=== PATIENT | female | born 1970 | race African-American/Black ===

== ENCOUNTER 2020-07-09 08:01 | Observation (INO) | payer OTHER ==
--- NOTE | 2020-07-09 08:20 | Event Note ---
ED Screening Note Date of service: 07/09/20 Time: 08:19 ED Screening Note: Patient complains of sudden onset of generalized severe headache starting last night Patient states when her blood pressure is elevated she gets headaches, however this headache is much worse than normal She denies any weakness or numbness This initial assessment/diagnostic orders/clinical plan/treatment(s) is/are subject to change based on patients health status, clinical progression and re- assessment by fellow clinical providers in the ED. Further treatment and workup at subsequent clinical providers discretion. Patient/guardian urged not to elope from the ED as their condition may be serious if not clinically assessed and managed. Initial orders include: CT labs
[2020-07-09 08:46] LABS: Basophils % (Auto) 0.3 % (0.0-1.8); Eosinophils % (Auto) 0.3 % (0.0-4.3); Hematocrit 41.4 % (30.3-42.9); Hemoglobin 14.3 gm/dl (10.1-14.3); Lymphocytes % (Auto) 13.3 % (13.4-35.0); Mean Corpuscular HGB Conc 35 % (30-34); Mean Corpuscular Volume 93 fl (79-97); Monocytes # (Auto) 0.2 K/mm3 (0.0-0.8); Monocytes % (Auto) 3.3 % (0.0-7.3); Platelet Count 273 K/mm3 (140-440); Red Blood Count 4.47 M/mm3 (3.65-5.03); Red Cell Distribution Width 12.2 % (13.2-15.2)
[2020-07-09 09:00] LABS: Alanine Aminotransferase 16 units/L (7-56); Albumin 4.6 g/dL (3.9-5); Blood Urea Nitrogen 7 mg/dL (7-17); Calcium 8.9 mg/dL (8.4-10.2); Hemolysis Index 13
[2020-07-09 09:05] LABS: BUN/Creatinine Ratio 18
--- NOTE | 2020-07-09 09:47 | Cat Scan Report ---
CT HEAD WITHOUT CONTRAST INDICATION / CLINICAL INFORMATION: sudden severe headache. TECHNIQUE: Axial imaging performed from the skull apex through the skull base without the use of cont rast. Sagittal and coronal reformatted images. All CT scans at this location are performed using CT dose reduction for ALARA by means of automated exposure control. COMPARISON: None available. FINDINGS: CEREBRAL PARENCHYMA: There is nonspecific hypoattenuation in the periventricular and subcortical whit e matter bilaterally most consistent with chronic microangiopathy. No acute parenchymal abnormality. No chronic infarct. HEMORRHAGE: None. EXTRA-AXIAL SPACES: Normal in size and morphology for the patient's age. VENTRICULAR SYSTEM: Normal in size and morphology for the patient's age. MIDLINE SHIFT OR HERNIATION: None. CEREBELLUM / BRAINSTEM: No significant abnormality. CALVARIUM: No significant abnormality. ORBITS: Normal as visualized. PARANASAL SINUSES / MASTOID AIR CELLS: Normal as visualized. SOFT TISSUES of HEAD: No significant abnormality. ADDITIONAL FINDINGS: None. IMPRESSION: No acute intracranial abnormality. Nonspecific chronic white matter changes most consistent with synchronizer luz microangiopathy. Signer Name: Rigoberto Marques Jr, MD Signed: 07/09/2020 9:43 AM Workstation Name: [id number]
[2020-07-09] MEDS ORDERED: MORPHINE 4 MG/1 ML INJ IV ONE (10:54)
[2020-07-09] MEDS ORDERED: ONDANSETRON 4 MG/2 ML INJ IV ONE (10:54)
[2020-07-09] MEDS ORDERED: SODIUM CHLORIDE 0.9% 1000 ML 1,000 ML IV SCH (11:00)
--- NOTE | 2020-07-09 11:10 | Emergency Department Report ---
ED Headache HPI - General Chief Complaint: Headache Stated Complaint: HIGH BP Time Seen by Provider: 07/09/20 08:18 - History of Present Illness Initial Comments: This is a 50-year-old [place] speaking female with history of hypertension who presents with severe headache since last night. Patient has global throbbing headache which began gradually. She also has nausea vomiting. She denies visual changes. She denies paresthesias. She denies weakness. For several months she has had chronic cough. Lung exam obtained by PCP did not reveal any abnormalities. Patient also has dull left flank pain over the last several days. Patient denies tobacco use. Patient works in a [employer]. She lives with a roommate. Her [id number] at the bedside provided [place] interpretation. Patient has the following medications in her bag, including duplicate: Levocetirizine 5 mg Loratadine 10 mg Loratadine 10 mg Lisinopril 10 mg Lisinopril 40 mg Berta 180 mg Clonidine 0.1 mg for blood pressure over 150 and diastolic blood pressure over 110 Losartan/hydrochlorothiazide 100-25 mg Benadryl 25 mg Timing/Duration: other (Headache began last night) Quality: severe Head Injury Location: global Recent Head Trauma: frequent headaches Associated Symptoms: nausea/vomiting Allergies/Adverse Reactions: Allergies No Known Allergies Allergy (Unverified 07/09/20 08:17) ED Review of Systems ROS: Stated complaint: HIGH BP Other details as noted in HPI Comment: All other systems reviewed and negative Constitutional: denies: chills, fever Respiratory: cough. denies: shortness of breath Cardiovascular: denies: chest pain Gastrointestinal: nausea, vomiting. denies: abdominal pain Musculoskeletal: back pain Neurological: headache. denies: numbness, paresthesias, confusion ED Past Medical Hx - Past Medical History Previous Medical History?: Yes Hx Hypertension: Yes - Surgical History Past Surgical History?: No - Social History Smoking Status: Current Some Day Smoker Substance Use Type: None ED Physical Exam - General Limitations: No Limitations General appearance: alert, in no apparent distress, other (Appears ill, appears uncomfortable holding emesis bag) - Head Head exam: Present: atraumatic, normocephalic - Eye Eye exam: Present: normal appearance. Absent: scleral icterus, conjunctival injection - ENT ENT exam: Present: mucous membranes moist - Neck Neck exam: Present: normal inspection - Respiratory Respiratory exam: Present: normal lung sounds bilaterally. Absent: respiratory distress, wheezes, rales, rhonchi, stridor - Cardiovascular Cardiovascular Exam: Present: regular rate, normal rhythm, normal heart sounds. Absent: systolic murmur, diastolic murmur, rubs, gallop - GI/Abdominal GI/Abdominal exam: Present: soft, normal bowel sounds. Absent: distended, tenderness, guarding, rebound - Extremities Exam Extremities exam: Present: normal inspection - Neurological Exam Neurological exam: Present: alert, oriented X3 - Psychiatric Psychiatric exam: Present: normal affect, normal mood - Skin Skin exam: Present: warm, dry, intact, normal color. Absent: rash ED Course Vital Signs 07/09/20 07/09/20 07/09/20 08:11 11:20 12:21 Temperature 98.4 F Pulse Rate 115 H 101 H 103 H Respiratory 18 18 Rate Blood Pressure 191/104 Blood Pressure 185/11 149/96 [Left] O2 Sat by Pulse 95 93 Oximetry ED Medical Decision Making - Lab Data Result diagrams: 07/09/20 08:26 07/09/20 08:26 Laboratory Tests 07/09/20 07/09/20 08:26 08:26 WBC 7.6 RBC 4.47 Hgb 14.3 Hct 41.4 MCV 93 MCH 32 MCHC 35 H RDW 12.2 L Plt Count 273 Lymph % (Auto) 13.3 L [place] % (Auto) 3.3 Eos % (Auto) 0.3 Baso % (Auto) 0.3 Lymph # (Auto) 1.0 L [place] # (Auto) 0.2 Eos # (Auto) 0.0 Baso # (Auto) 0.0 Seg Neutrophils % 82.8 H Seg Neutrophils # 6.3 Sodium 121 L Potassium 3.3 L Chloride 84.4 L Carbon Dioxide 26 Anion Gap 14 BUN 7 Creatinine 0.4 L Estimated GFR > 60 BUN/Creatinine Ratio 18 Glucose 128 H Calcium 8.9 Total Bilirubin 0.50 AST 21 ALT 16 Alkaline Phosphatase 83 Total Protein 7.3 Albumin 4.6 Albumin/Globulin Ratio 1.7 - Radiology Data Radiology results: report reviewed, image reviewed CT HEAD WITHOUT CONTRAST INDICATION / CLINICAL INFORMATION: sudden severe headache. TECHNIQUE: Axial imaging performed from the skull apex through the skull base without the use of contrast. Sagittal and coronal reformatted images. All CT scans at this location are performed using CT dose reduction for ALARA by means of automated exposure control. COMPARISON: None available. FINDINGS: CEREBRAL PARENCHYMA: There is nonspecific hypoattenuation in the periventricular and subcortical white matter bilaterally most consistent with chronic microangiopathy. No acute parenchymal abnormality. No chronic infarct. HEMORRHAGE: None. EXTRA-AXIAL SPACES: Normal in size and morphology for the patient's age. VENTRICULAR SYSTEM: Normal in size and morphology for the patient's age. MIDLINE SHIFT OR HERNIATION: None. CEREBELLUM / BRAINSTEM: No significant abnormality. CALVARIUM: No significant abnormality. ORBITS: Normal as visualized. PARANASAL SINUSES / MASTOID AIR CELLS: Normal as visualized. SOFT TISSUES of HEAD: No significant abnormality. ADDITIONAL FINDINGS: None. IMPRESSION: No acute intracranial abnormality. Nonspecific chronic white matter changes most consistent with chronic microangiopathy. CT CHEST WITHOUT CONTRAST INDICATION / CLINICAL INFORMATION: Chronic cough, severe hyponatremia. TECHNIQUE: Axial CT images were obtained through the chest without contrast. Sagittal and coronal reformatted images. All CT scans at this location are performed using CT dose reduction for ALARA by means of automated exposure control. COMPARISON: None available. FINDINGS: HEART: No significant abnormality. THORACIC AORTA: No significant abnormality. MEDIASTINUM and BROOK: No significant abnormality. LUNGS: No acute air space or interstitial disease. PLEURA: No significant pleural effusion. No pneumot horax. SKELETAL SYSTEM: No significant abnormality. IMPRESSION: No significant abnormality. CT ABDOMEN AND PELVIS WITHOUT CONTRAST HISTORY: flank pain severe hyponatremia COMPARISON: None. TECHNIQUE: Axial CT images were obtained through the abdomen and pelvis without IV contrast. Sagittal and coronal reformatted images. All CT scans at this location are performed using CT dose reduction for ALARA by means of automated exposure control. FINDINGS: CT ABDOMEN: Liver: No significant abnormality. Biliary: No significant abnormality. Spleen: No significant abnormality. Unenlarged. Pancreas: No significant abnormality. Adrenals: No significant abnormality. Kidneys: A 3 mm calyceal stone is identified in the inferior right kidney. No associated hydronephrosis. The kidneys and collecting systems are unremarkable otherwise on noncontrast CT. [facility] [address], [address] [place] [address] P [phone] F [phone] [facility] - Report exported on Jul 09, 2020 11:39:05 -0600 - Page 2 of 2 Lymphatics: No lymphadenopathy. Vasculature: No significant abnormality. Bowel/Peritoneum: No significant abnormality. No free air. No free fluid. Normal appendix. CT PELVIS: : Small partially calcified fibroid is suggested near the uterine fundus. The adnexa and bladder are unremarkable. Osseous Structures: No significant abnormality. Additional Findings: None IMPRESSION: No acute process. 3 mm right renal stone. Small uterine fibroid. Otherwise, unremarkable exam - Medical Decision Making 1. Acute headache: CT head ruled out intracranial hemorrhage. No evidence of acute findings on CT head. I suspect hyponatremia as a cause of headache. As well as hypertensive urgency. Patient was treated with slow infusion of normal saline 75 mL/h. She also was treated with IV labetalol for hypertension control. 2. Hypertensive urgency: No evidence of endorgan damage. However patient did have malignant hypertension upon arrival exacerbated by headache patient's discomfort. 3. Hyponatremia likely due to thiazide diuretic use: Patient received slow infusion of saline 75 mL an hour 4. Flank pain: No indication of emergent causes. CT abdomen pelvis without acute findings, patient does have a 3 mm right renal stone and also uterine fibroid. Will defer to outpatient work-up. I used [employer] line [place] per diem interpreter to obtain history, give results and explained treatment plan. Critical care attestation.: If time is entered above; I have spent that time in minutes in the direct care of this critically ill patient, excluding procedure time. ED Disposition Clinical Impression: Acute headache, Hyponatremia, Hypertensive urgency Disposition: OP ADMIT IP TO THIS HOSP Is pt being admited?: Yes Does the pt Need Aspirin: No Condition: Stable Referrals: PRIMARY CARE, [Primary Care Provider] - 3-5 Days
--- NOTE | 2020-07-09 12:24 | Cat Scan Report ---
CT CHEST WITHOUT CONTRAST INDICATION / CLINICAL INFORMATION: Chronic cough, severe hyponatremia. TECHNIQUE: Axial CT images were obtained through the chest without contrast. Sagittal and coronal reformatted im ages. All CT scans at this location are performed using CT dose reduction for ALARA by means of autom ated exposure control. COMPARISON: None available. FINDINGS: HEART: No significant abnormality. THORACIC AORTA: No significant abnormality. MEDIASTINUM and BROOK: No significant abnormality. LUNGS: No acute air space or interstitial disease. PLEURA: No significant pleural effusion. No pneumothorax. SKELETAL SYSTEM: No significant abnormality. IMPRESSION: No significant abnormality. CT ABDOMEN AND PELVIS WITHOUT CONTRAST HISTORY: flank pain severe hyponatremia COMPARISON: None. TECHNIQUE: Axial CT images were obtained through the abdomen and pelvis without IV contrast. Sagittal and coronal reformatted images. All CT scans at this location are performed using CT dose reduction for ALARA by means of automated exposure control. FINDINGS: CT ABDOMEN: Liver: No significant abnormality. Biliary: No significant abnormality. Spleen: No significant abnormality. Unenlarged. Pancreas: No significant abnormality. Adrenals: No significant abnormality. Kidneys: A 3 mm calyceal stone is identified in the inferior right kidney. No associated hydronephros is. The kidneys and collecting systems are unremarkable otherwise on noncontrast CT. Lymphatics: No lymphadenopathy. Vasculature: No significant abnormality. Bowel/Peritoneum: No significant abnormality. No free air. No free fluid. Normal appendix. CT PELVIS: : Small partially calcified fibroid is suggested near the uterine fundus. The adnexa and bladder ar e unremarkable. Osseous Structures: No significant abnormality. Additional Findings: None IMPRESSION: No acute process. 3 mm right renal stone. Small uterine fibroid. Otherwise, unremarkable exam. Signer Name: Rigoberto Marques Jr, MD Signed: 07/09/2020 12:20 PM Workstation Name: [id number]
[2020-07-09] MEDS ORDERED: METOCLOPRAMIDE 10 MG/2 ML INJ IV ONE (13:56)
[2020-07-09] MEDS ORDERED: MORPHINE 2 MG/1 ML INJ IV PRN (14:03)
[2020-07-09] MEDS ORDERED: ONDANSETRON 4 MG/2 ML INJ IV PRN (14:03)
[2020-07-09] MEDS ORDERED: MORPHINE 4 MG/1 ML INJ IV PRN (14:03)
[2020-07-09] MEDS ORDERED: ALBUTEROL 2.5 MG/3 ML NEBU IH PRN (14:03)
[2020-07-09] MEDS ORDERED: NALOXONE 0.4 MG/1 ML INJ IV PRN (14:03)
[2020-07-09] MEDS ORDERED: MAGNESIUM HYDROXIDE (MOM) ORAL LIQD UDC PO PRN (14:03)
[2020-07-09] MEDS ORDERED: ACETAMINOPHEN 325 MG TAB PO PRN (14:03)
[2020-07-09] MEDS ORDERED: hydrALAZINE 20 MG/1 ML INJ IV PRN (14:08)
--- NOTE | 2020-07-09 14:20 | History and Physical Report ---
History of Present Illness Date of examination: 07/09/20 Date of admission: 07/09/20 12:59 Chief complaint: Headache, nausea and vomiting, abdominal pain History of present illness: This is a 50-year-old enemies speaking female with hypertension who presents to the emergency department on 07/09 with complaints of a severe headache rated 10/10 with gradual onset since last night, nausea and vomiting since last night associated with mid abdominal pain which started last night rated at 10/10. Patient is a poor historian and does not speak [place] therefore most of history is obtained from her cousin and ED documentation. Per ED documentation patient is a current smoker however she denied this at the time my interview. Patient denies any cough, fever, chills, loss of sense of taste or smell, shortness of breath, excessive fatigue, or diarrhea, chest pain, night sweats, hemoptysis or recent weight loss. Patient denies any known exposure to COVID-19 or sick persons. Work-up in the emergency department included a CT head, CT chest and CT abdomen/pelvis which revealed a 3 mm right nephrolithiasis without obstruction and a small uterine fibroid. Upon arrival to the emergency department patient's BP was 191/104 and she was given 10 mg of labetalol. Her lab work revealed natremia at 121, hypokalemia at 3.3 and hypochloremia at 84.4. Patient will be admitted to the hospital service for intractable nausea and vomiting with electrolyte imbalances and as a COVID-19 PUI. Home medications reconciled, prior visits to review and advance care planning conducted in the emergency department. Past History Past Medical History: hypertension Past Surgical History: No surgical history Social history: single, Lives alone, full code. denies: smoking, alcohol abuse, prescription drug abuse, IV drug use Family history: no significant family history Medications and Allergies Allergies Allergy/AdvReac Type Severity Reaction Status Date / Time No Known Allergies Allergy Unverified 07/09/20 08:17 Active Meds: Active Medications Acetaminophen (Acetaminophen 325 Mg Tab) 650 mg PO Q4H PRN PRN Reason: Pain MILD(1-3)/Fever >100.5/[place] Albuterol (Albuterol 2.5 Mg/3 Ml Nebu) 2.5 mg IH Q4HRT PRN PRN Reason: Shortness Of Breath Enoxaparin Sodium (Enoxaparin 30 Mg/0.3 Ml Inj) 30 mg SUB-Q QDAY [place] Famotidine (Famotidine 20 Mg/2 Ml Inj) 10 mg IV BID [facility] Hydralazine HCl (Hydralazine 20 Mg/1 Ml Inj) 10 mg IV Q4HR PRN PRN Reason: Hypertension Sodium Chloride (Nacl 0.9% 1000 Ml) 1,000 mls @ 75 mls/hr IV DIRECT [place] Last Admin: 07/09/20 11:51 Dose: 75 mls/hr Documented by: Potassium Chloride (Kcl 10meq/100ml) 10 meq in 100 mls @ 100 mls/hr IV Q1H [place] Stop: 07/09/20 18:59 Labetalol HCl (Labetalol 20 Mg/4 Ml Inj) 10 mg IV Q6HR PRN PRN Reason: Hypertension Magnesium Hydroxide (Magnesium Hydroxide (Mom) Oral Liqd Udc) 30 ml PO Q4H PRN PRN Reason: Constipation Morphine Sulfate (Morphine 2 Mg/1 Ml Inj) 2 mg IV Q4H PRN PRN Reason: Pain, Moderate (4-6) Morphine Sulfate (Morphine 4 Mg/1 Ml Inj) 4 mg IV Q4H PRN PRN Reason: Pain , Severe (7-10) Naloxone HCl (Naloxone 0.4 Mg/1 Ml Inj) 0.1 mg IV Q2MIN PRN PRN Reason: Res Rate </= 8 or 02 SAT < 92% Ondansetron HCl (Ondansetron 4 Mg/2 Ml Inj) 4 mg IV Q6HR PRN PRN Reason: Nausea And Vomiting Sodium Chloride (Sodium Chloride 0.9% 10 Ml Flush Syringe) 10 ml IV BID [facility] Sodium Chloride (Sodium Chloride 0.9% 10 Ml Flush Syringe) 10 ml IV PRN PRN PRN Reason: LINE FLUSH Review of Systems Constitutional: no weight loss, no weight gain, no fever, no chills, no sweats, no night sweats, no fatigue, no lethargy Ears, nose, mouth and throat: sore throat, no ear pain, no ear discharge, no tinnitis, no decreased hearing, no nose pain, no nasal congestion, no nasal discharge, no sinus pressure, no sinus pain, no mouth pain Cardiovascular: high blood pressure, no chest pain, no orthopnea, no palpitations, no rapid/irregular heart beat, no edema, no syncope, no lightheadedness, no shortness of breath, no dyspnea on exertion, no leg edema Respiratory: cough, no cough with sputum, no excessive sputum, no hemoptysis, no shortness of breath, no dyspnea on exertion Gastrointestinal: abdominal pain, nausea, vomiting, no diarrhea, no constipation, no change in bowel habits, no hematemesis, no coffee ground emesis, no BRBPR, no melena, no hematochezia, no heartburn, no indigestion, no early satiety Genitourinary Female: no pelvic pain, no flank pain, no dysuria, no urinary frequency, no urgency, no stress incontinence, no hematuria, no nocturia Rectal: no pain, no incontinence, no bleeding, no itching, no hemorrhoids Musculoskeletal: no neck stiffness, no neck pain, no shooting arm pain, no arm numbness/tingling, no low back pain, no shooting leg pain, no leg numbness/tingl ing Integumentary: no rash, no pruritis, no redness, no sores, no wounds, no jaundice, no blisters, no darkening of skin Neurological: no head injury, no transient paralysis, no paralysis, no weakness, no parathesias, no numbness, no tingling, no seizures, no syncope, no headaches, no change in speech, no change in mentation, no changes in smell/taste, no double vision, no loss of vision Psychiatric: no anxiety, no memory loss, no insomnia, no hypersomnia, no depression, no hopelessness Endocrine: no cold intolerance, no heat intolerance, no polyphagia, no excessive thirst, no polydipsia, no polyuria, no nocturia, no excessive sweating, no weight change, no palpatations, no low blood sugars Hematologic/Lymphatic: no easy bruising, no easy bleeding Allergic/Immunologic: allergic rhinitis, seasonal allergies, no urticaria Exam - Constitutional Vitals: Temp Pulse Resp BP Pulse Ox 98.4 F 103 H 18 149/96 93 07/09/20 08:11 07/09/20 12:21 07/09/20 11:20 07/09/20 12:21 07/09/20 11:20 General appearance: Present: mild distress - EENT Eyes: Present: PERRL, EOM intact ENT: hearing intact, clear oral mucosa, dentition normal - Neck Neck: Present: normal ROM - Respiratory Respiratory effort: normal Respiratory: bilateral: CTA - Cardiovascular Rhythm: regular Heart Sounds: Present: S1 & S2. Absent: systolic murmur, diastolic murmur - Extremities Extremities: no ischemia, pulses intact, pulses symmetrical, No edema, normal temperature, normal color, Full ROM - Abdominal General gastrointestinal: Present: soft, non-tender, non-distended, normal bowel sounds - Integumentary Integumentary: Present: clear, warm, dry - Musculoskeletal Musculoskeletal: strength equal bilaterally - Psychiatric Psychiatric: appropriate mood/affect, cooperative - Neurologic Neurologic: CNII-XII intact, no focal deficits, moves all extremities - Allied Health Allied health notes reviewed: nursing Results - Labs CBC & Chem 7: 07/09/20 08:26 07/09/20 08:26 Labs: Laboratory Last Values WBC 7.6 K/mm3 (4.5-11.0) 07/09/20 08:26 RBC 4.47 M/mm3 (3.65-5.03) 07/09/20 08:26 Hgb 14.3 gm/dl (10.1-14.3) 07/09/20 08:26 Hct 41.4 % (30.3-42.9) 07/09/20 08:26 MCV 93 fl (79-97) 07/09/20 08:26 MCH 32 pg (28-32) 07/09/20 08:26 MCHC 35 % (30-34) H 07/09/20 08:26 RDW 12.2 % (13.2-15.2) L 07/09/20 08:26 Plt Count 273 K/mm3 (140-440) 07/09/20 08:26 Lymph % (Auto) 13.3 % (13.4-35.0) L 07/09/20 08:26 [place] % (Auto) 3.3 % (0.0-7.3) 07/09/20 08:26 Eos % (Auto) 0.3 % (0.0-4.3) 07/09/20 08:26 Baso % (Auto) 0.3 % (0.0-1.8) 07/09/20 08:26 Lymph # (Auto) 1.0 K/mm3 (1.2-5.4) L 07/09/20 08:26 [place] # (Auto) 0.2 K/mm3 (0.0-0.8) 07/09/20 08:26 Eos # (Auto) 0.0 K/mm3 (0.0-0.4) 07/09/20 08:26 Baso # (Auto) 0.0 K/mm3 (0.0-0.1) 07/09/20 08:26 Seg Neutrophils % 82.8 % (40.0-70.0) H 07/09/20 08:26 Seg Neutrophils # 6.3 K/mm3 (1.8-7.7) 07/09/20 08:26 Sodium 121 mmol/L (137-145) L 07/09/20 08:26 Potassium 3.3 mmol/L (3.6-5.0) L 07/09/20 08:26 Chloride 84.4 mmol/L (98-107) L 07/09/20 08:26 Carbon Dioxide 26 mmol/L (22-30) 07/09/20 08:26 Anion Gap 14 mmol/L 07/09/20 08:26 BUN 7 mg/dL (7-17) 07/09/20 08:26 Creatinine 0.4 mg/dL (0.6-1.2) L 07/09/20 08:26 Estimated GFR > 60 ml/min 07/09/20 08:26 BUN/Creatinine Ratio 18 % 07/09/20 08:26 Glucose 128 mg/dL (65-100) H 07/09/20 08:26 Calcium 8.9 mg/dL (8.4-10.2) 07/09/20 08:26 Total Bilirubin 0.50 mg/dL (0.1-1.2) 07/09/20 08:26 AST 21 units/L (5-40) 07/09/20 08:26 ALT 16 units/L (7-56) 07/09/20 08:26 Alkaline Phosphatase 83 units/L (35-129) 07/09/20 08:26 Total Protein 7.3 g/dL (6.3-8.2) 07/09/20 08:26 Albumin 4.6 g/dL (3.9-5) 07/09/20 08:26 Albumin/Globulin Ratio 1.7 % 07/09/20 08:26 - Imaging and Cardiology CT scan - abdomen: report reviewed CT scan - chest: report reviewed - Diagnostic Impressions Diagnostic Impressions: 07/09 CT head shows no acute intracranial abnormality, nonspecific chronic white matter changes most consistent with chronic microangiopathy 07/09 CT chest without contrast shows 3 mm calculi stone in the right inferior in the inferior right kidney not associated with hydronephrosis, small partially calcified fibroid near the uterus fundus 07/09 CT abdomen/pelvis shows 3 mm calculus stone identified in the inferior right kidney with no associated hydronephrosis and small partially calcified fibroid near the uterine fundus Burch/IV: IV Catheter Type [Right INT / Saline Lock Antecubital] Assessment and Plan Assessment and plan: COVID-19 PUI -07/09 COVID-19 19 PCR pending -Isolation/droplet precautions -Infectious disease consult if COVID-19 positive -We will start steroid therapies if COVID-19 is positive -Pulmonary hygiene -Supplemental oxygen as needed -SPO2 monitoring -Trend Covid informatory markers -Prone to sleep as needed -Anticoagulation per protocol Hypertensive emergency -Presented with a systolic blood pressure of 191/104 -S/p labetalol in the emergency department -Restart home lisinopril and losartan, hold home hydrochlorothiazide -IV hydralazine and labetalol as needed -Blood pressure monitoring per protocol Hyponatremia -Presented with a sodium of 121 -Initiated on normal saline at 75 mL/h -Trend BMP -07/09 urine lites pending -P.o. sodium -Monitor neuro status -Avoid rapid correction Hypokalemia -Presented with a potassium of 3.1 -Repleted -Trend BMP -Intervene as needed Hypochloremia -Presented with intractable nausea and vomiting -07/09 chloride 84.4 -Trend BMP Intractable nausea and vomiting -S/p IV Reglan and Zofran x1 in the ED -As needed Zofran -Scheduled Reglan -Supportive care DVT prophylaxis -On GI and DVT prophylaxis -SCDs to bilateral tremors while in bed Full code VTE prophylaxis?: Chemical, Mechanical Plan of care discussed with patient/family: Yes
[2020-07-09 15:56] LABS: C-Reactive Protein 0.1 mg/dL (0.00-1.30)
[2020-07-09] MEDS: POTASSIUM CHLORIDE 10 MEQ 10 MEQ/100 ML BAG IV SCH ×4 (15:56→21:00)
[2020-07-09] MEDS: METOCLOPRAMIDE 10 MG/2 ML INJ IV SCH ×2 (19:14→23:20)
[2020-07-09 20:29] LABS: Bacteria,Urine 1+ /HPF (Negative); Bilirubin,Urine NEG (Negative); Blood,Urine SM (Negative); Color,Urine Straw (Yellow); Mucus,Urine FEW /HPF; Protein,Urine <15 mg/dL mg/dL (Negative); Urobilinogen,Urine < 2.0 mg/dL (<2.0)
[2020-07-09 20:49] LABS: Creatinine,Urine 22.5 mg/dL (0.1-20.0)
[2020-07-09] MEDS ORDERED: SODIUM CHLORIDE 1 GM TAB PO SCH (22:00)
[2020-07-09] MEDS: FAMOTIDINE 20 MG/2 ML INJ IV SCH (23:20)
[2020-07-10 06:31] LABS: Basophils % (Auto) 0.2 % (0.0-1.8); Eosinophils % (Auto) 0.1 % (0.0-4.3); Hemoglobin 13.8 gm/dl (10.1-14.3); Lymphocytes # (Auto) 1.5 K/mm3 (1.2-5.4); Mean Corpuscular HGB Conc 34 % (30-34); Mean Corpuscular Volume 94 fl (79-97); Monocytes # (Auto) 0.8 K/mm3 (0.0-0.8); Monocytes % (Auto) 9.9 % (0.0-7.3); Platelet Count 273 K/mm3 (140-440); Red Blood Count 4.36 M/mm3 (3.65-5.03); Red Cell Distribution Width 12.3 % (13.2-15.2)
[2020-07-10 07:00] LABS: Alanine Aminotransferase 12 units/L (7-56); Albumin 4.2 g/dL (3.9-5); BUN/Creatinine Ratio 14; Blood Urea Nitrogen 7 mg/dL (7-17); Calcium 8.7 mg/dL (8.4-10.2); Hemolysis Index 8
[2020-07-10] MEDS: METOCLOPRAMIDE 10 MG/2 ML INJ IV SCH ×2 (07:31→13:31)
[2020-07-10] MEDS ORDERED: ENOXAPARIN 30 MG/0.3 ML INJ SUB-Q SCH (10:00)
[2020-07-10] MEDS ORDERED: ENOXAPARIN 40 MG/0.4 ML INJ SUB-Q SCH (10:00)
[2020-07-10] MEDS ORDERED: hydroCHLOROthiazide 25 MG TAB PO SCH (10:00)
[2020-07-10] MEDS ORDERED: LISINOPRIL 20 MG TAB PO SCH (10:00)
[2020-07-10] MEDS ORDERED: LOSARTAN 50 MG TAB PO SCH ×3 (10:00)
[2020-07-10] MEDS ORDERED: METOPROLOL TARTRATE 25 MG TAB PO SCH (10:00)
[2020-07-10] MEDS: FAMOTIDINE 20 MG/2 ML INJ IV SCH (11:31)
--- NOTE | 2020-07-10 12:39 | Discharge Summary ---
Providers - Providers Date of Admission: 07/09/20 12:59 Date of discharge: 07/10/20 Attending physician: DEVEN OLSON Primary care physician: [employer] Hospitalization Hospital course: This is a 50-year-old Guyanese speaking female with hypertension and seasonal allergies who presents to the emergency department on 07/09 with complaints of severe headache rated 10/10 with gradual onset since last night, nausea and vomiting since 07/08 overnight associated with mid abdominal pain which started last night rated at 10/10. Patient is a poor historian and does not speak Chinese therefore most of history is obtained from her cousin and ED documentation. Per ED documentation patient is a current smoker however she denied this at the time my interview. Work-up in the emergency department included a CT head, CT chest and CT abdomen/pelvis which revealed a 3 mm right nephrolithiasis without obstruction and a small uterine fibroid. Upon arrival to the emergency department patient's BP was 191/104 and she was given 10 mg of labetalol. Her lab work revealed natremia at 121, hypokalemia at 3.3 and hypochloremia at 84.4. Patient will be admitted to the hospital service for int ractable nausea and vomiting with electrolyte imbalances and as a COVID-19 PUI. This morning patient complains of cough and states her headache and nausea and vomiting has resolved. Patient remains hypertensive and her blood pressure medications have been adjusted. Her electrode imbalances have corrected. Patient will need to follow-up with her primary care physician within 1 to 2 weeks of discharge. COVID-19 PCR resulted as---- Disposition: - TO HOME OR SELFCARE Time spent for discharge: 35 Core Measure Documentation - Palliative Care Palliative Care/ Comfort Measures: Not Applicable - Core Measures Any of the following diagnoses?: none Exam - Constitutional Vitals: Temp Pulse Resp BP Pulse Ox 98.6 F 108 H 17 152/98 94 07/10/20 00:38 07/10/20 06:42 07/10/20 06:42 07/10/20 06:42 07/10/20 11:54 General appearance: Present: no acute distress - EENT Eyes: Present: PERRL, EOM intact ENT: hearing intact, poor dentition - Neck Neck: Present: normal ROM - Respiratory Respiratory effort: normal Respiratory: bilateral: diminished - Cardiovascular Rhythm: regular Heart Sounds: Present: S1 & S2. Absent: systolic murmur, diastolic murmur - Extremities Extremities: no ischemia, pulses intact, pulses symmetrical, No edema, normal temperature, normal color, Full ROM Peripheral Pulses: within normal limits - Abdominal General gastrointestinal: Present: soft, non-tender, non-distended, normal bowel sounds - Integumentary Integumentary: Present: clear, warm, dry - Musculoskeletal Musculoskeletal: strength equal bilaterally - Psychiatric Psychiatric: appropriate mood/affect, cooperative - Neurologic Neurologic: CNII-XII intact, no focal deficits, moves all extremities - Allied Health Allied health notes reviewed: nursing Plan Activity: advance as tolerated Diet: low salt Special Instructions: record daily BP diary, smoking cessation Additional Instructions: Present to nearest emergency department or contact your primary care physician if you experience worsening symptoms. Patient will need to follow-up with her primary care physician within 1 to 2 weeks of discharge. Follow up with: PRIMARY CARE, [Primary Care Provider] - 3-5 Days Prescriptions: amLODIPine 10 mg PO QDAY #30 tablet Losartan [Cozaar] 50 mg PO QDAY #30 tablet Metoprolol [Lopressor TAB] 25 mg PO BID #60 tablet
[2020-07-10] MEDS ORDERED: amLODIPine 10 MG TAB PO SCH (13:00)
[2020-07-10] MEDS ORDERED: BENZONATATE 100 MG CAP PO SCH (14:00)
[2020-07-10 17:59] VITALS: BP 185/107
== END 2020-07-10 17:00 | disposition home or self-care (01) ==
LOC: ED 08:01 → 4A 12:59 → 3A 14:57
PROVIDERS: ADMIT Internal Medicine; ATTEND Internal Medicine
DX: I16.0 Hypertensive urgency (principal); Z20.828 Contact with and (suspected) exposure to other viral communicable diseases; E87.1 Hypo-osmolality and hyponatremia; E87.6 Hypokalemia; R51.9 Headache, unspecified; E87.8 Other disorders of electrolyte and fluid balance, not elsewhere classified; R11.2 Nausea with vomiting, unspecified; F17.200 Nicotine dependence, unspecified, uncomplicated; Z79.899 Other long term (current) drug therapy
CPT/HCPCS: 36415; 70450; 71250; 74176; 80053; 81001; 82570; 82728; 82947; 83036; 83615; 83735; 83935; 84133; 84145; 84300; 85025; 85379; 86140; 87040; 96361; 96365; 96366; 96372; 96375; 96376; 99285; G0378; J1650; J2270; J2405; J2765; J3480; J7030; J7050; U0003